=== PATIENT | male | born 2000 | race Caucasian/White ===

== ENCOUNTER → 2023-01-31 | Outpatient (REF) | payer OTHER | LOC: M LAB REF 16:27 | PROVIDERS: ATTEND Nurse Practitioner Family | DX: R30.0 Dysuria (principal) ==

== ENCOUNTER → 2024-02-16 | Outpatient (CLI) | payer OTHER | LOC: M CARPUL 09:50 | PROVIDERS: ATTEND Internal Medicine | DX: R06.09 Other forms of dyspnea (principal) ==

== ENCOUNTER → 2024-05-22 | Outpatient (CLI) | payer OTHER ==
[~2024-05-22] MED LIST: PROHANCE 279.3MG/ML 15ML VIAL ONE; PROHANCE 279.3MG/ML 5ML VIAL ONE
== END ==
LOC: M PLAIMG 07:22
PROVIDERS: ATTEND Physician Assistant
DX: R10.2 Pelvic and perineal pain (principal)
CPT/HCPCS: 72197; A9576

== ENCOUNTER 2024-07-18 13:08 | Emergency (ER) | payer OTHER ==
[~2024-07-18] VITALS: Ht 185.4 cm; Wt 87.6 kg
[2024-07-18 18:15] LABS: BASO % 0.6 % (0.0-1.0); EOS # 0.2 10^3/uL (0.0-0.5); EOS % 3.7 % (0.0-3.0); HEMATOCRIT 48.2 % (42.0-52.0); LYMPH # 1.3 10^3/uL (1.5-5.0); LYMPH % 24.8 % (24.0-44.0); MEAN CORPUSCULAR HEMOGLOBIN 28.7 pg (27.0-33.0); MEAN CORPUSCULAR HGB CONC 33.2 g/dl (32.0-36.5); MEAN CORPUSCULAR VOLUME 86.5 fl (80.0-96.0); MONO # 0.7 10^3/uL (0.0-0.8); MONO % 13.2 % (2.0-8.0); NEUTROPHILS % 56.9 % (36.0-66.0); PLATELET COUNT, AUTOMATED 179 10^3/uL (150-450); RED BLOOD COUNT 5.57 10^6/uL (4.30-6.10); WHITE BLOOD COUNT 5.2 10^3/uL (4.0-10.0)
[2024-07-18 18:37] LABS: LIPASE 38 U/L (12-53)
[2024-07-18 18:39] LABS: ALKALINE PHOSPHATASE 66 U/L (40-129); ALT/SGPT 56 U/L (7.0-40); AST/SGOT 29 U/L (<34); BILIRUBIN,DIRECT 0.1 MG/DL (<0.4); BILIRUBIN,TOTAL 0.4 MG/DL (0.3-1.2); BLOOD UREA NITROGEN 16 MG/DL (9-23); CALCIUM LEVEL 9.1 MG/DL (8.5-10.1); CARBON DIOXIDE LEVEL 30 MMOL/L (20-31); CHLORIDE LEVEL 103 MMOL/L (98-107); CK-MB VALUE MASS < 1.0 NG/ML (<3.6); CREATININE FOR GFR 0.77 MG/DL (0.70-1.30); GLOMERULAR FILTRATION RATE > 90.0 (>60); GLUCOSE, FASTING 89 MG/DL (60-100); POTASSIUM SERUM 4.2 MMOL/L (3.5-5.1); SODIUM LEVEL 140 MMOL/L (136-145)
[2024-07-18 18:41] LABS: CPK CREATINE PHOSPHOKINASE 145 U/L (46-171); FREE T4 1.09 NG/DL (0.89-1.76); MB/CK RELATIVE INDEX 0.68 (< OR =4)
[2024-07-18] MEDS ORDERED: ISOVUE-370 76% 100ML VIAL As Ordered ONE (19:42)
[2024-07-18 20:39] VITALS: O2SAT 98
[2024-07-18 20:45] VITALS: BP 138/72
[2024-07-18 20:54] VITALS: TEMP 97.8
== END 2024-07-18 21:02 | disposition home or self-care (01) ==
LOC: M ED 13:08
DX: R07.9 Chest pain, unspecified (principal)
CPT/HCPCS: 71045; 71275; 80048; 80076; 82550; 82553; 83690; 84439; 84443; 84484; 85025; 93005; 99284; Q9967

== ENCOUNTER → 2024-12-31 | Outpatient (CLI) | payer OTHER | LOC: M EKG 08:11 | PROVIDERS: ATTEND Internal Medicine Cardiovascular Disease | DX: I49.8 Other specified cardiac arrhythmias (principal) ==

== ENCOUNTER → 2025-02-05 | Outpatient (CLI) | payer OTHER | LOC: M CARPUL 13:19 | PROVIDERS: ATTEND Internal Medicine Cardiovascular Disease | DX: R07.9 Chest pain, unspecified (principal) ==

== ENCOUNTER → 2025-02-19 | Outpatient (CLI) | payer OTHER | LOC: M CARPUL 13:16 | PROVIDERS: ATTEND Internal Medicine Cardiovascular Disease | DX: I51.7 Cardiomegaly (principal); R94.31 Abnormal electrocardiogram [ECG] [EKG] ==